=== PATIENT | female | born 1990 | race Caucasian/White ===

== ENCOUNTER 2016-11-13 14:50 | Emergency (ER) | payer SELFPAY ==
[~2016-11-13] VITALS: Ht 172.7 cm; Wt 90.9 kg
[2016-11-13 14:53] VITALS: BP 167/86; PULSE 78; RESP 12; TEMP 97.4; O2SAT 98
[2016-11-13] MEDS ORDERED: AMOX500C PO (15:46)
[2016-11-13] MEDS ORDERED: AZIT250T3 PO (15:46)
--- NOTE | 2016-11-13 16:01 | PD ---
HPI . abdominal discomfort, diarrhea, nausea x 5 days Chief Complaint: Abdominal Pain Time Seen by Provider: 15:49 Travel History International Travel<30 days: No Contact w/Intl Traveler<30days: No Traveled to known affect area: No History of Present Illness HPI 26-year-old female with HTN here with complaints of abdominal discomfort, nausea and vomiting for several days. Patient states she was coughing and sick on Thursday, where she visited [facility] and was told that she had a respiratory infection. Patient was given antibiotics (augmentin) and went home and developed diarrhea. She then went back to another hospital in [place] and was changed to amoxicillin and Z-Valente. Then patient has been having some intense abdominal discomfort, which she describes as a burning sensation. She cannot localize the pain as it is diffuse throughout her abdomen. She is still having some diarrhea, but states her nausea significantly improved. During subsequent hospital visit she had a chest x-ray with questionable pneumonia and had a CT scan that was negative. Patient states she is here because she feels that she was not given good answers as to why she is having abdominal discomfort. She denies any fever, chills, sob, nausea, or vomiting. Her bp is elevated and she states it has been high since she has been sick. She is aware she has HTN and states she uses diet to control. PFSH Past Medical History Hypertension: Yes Tetanus Vaccination: < 5 Years Influenza Vaccination: No ?: Not LMP: 10/14/2016 : 0 Para: 0 Miscarriage: 0 : 0 Past Surgical History Surgical History: No Previous Surgery Social History Alcohol Use: No Tobacco Use: No Substance Use: No (MARIJUANA ) Allergies-Medications (Allergen,Severity, Reaction): Coded Allergies: No Known Allergies (Unverified , 11/13/16) Reported Meds & Prescriptions Reported Meds & Active Scripts Active Phenergan (Promethazine HCl) 25 Mg Tab 25 Mg PO Q8HR PRN Reported Azithromycin 250 Mg Tab 250 Mg PO DIRECTED Take 2 tabs (500 mg) on day 1 then 1 tab daily x 4 days. Amoxicillin 500 Mg Cap 500 Mg PO BID Review of Systems General / Constitutional: No: Fever Eyes: No: Visual changes HENT: No: Headaches Cardiovascular: No: Chest Pain or Discomfort Respiratory: No: Shortness of Breath Gastrointestinal: Positive: Abdominal Pain Genitourinary: No: Dysuria Musculoskeletal: No: Pain Skin: No Rash Neurologic: No: Weakness Psychiatric: No: Depression Endocrine: No: Polydipsia Hematologic/Lymphatic: No: Easy Bruising Physical Exam Narrative GENERAL: AAO x 3, no acute distress, Well-nourished, well-developed patient. Obese. SKIN: Warm and dry. No visible rashes or bruising. HEAD: Normocephalic and atraumatic. EYES: No scleral icterus. No injection or drainage. ENT: No nasal drainage noted. Mucous membranes pink. Airway patent. NECK: Supple, trachea midline. No JVD. CARDIOVASCULAR: Regular rate and rhythm without murmurs, gallops, or rubs. RESPIRATORY: Breath sounds equal bilaterally. No accessory muscle use. No rhonchi or rales. GASTROINTESTINAL: Abdomen soft, nondistended. Normoactive bowel sounds. No guarding or rebounder tenderness. No visible abn. EXTREMITIES: No cyanosis or edema. BACK: Nontender without obvious deformity. No CVA tenderness. PSYCH: AAO x 3, normal affect. Data Data Last Documented VS Vital Signs Date Time Temp Pulse Resp B/P Pulse Ox O2 Delivery O2 Flow Rate FiO2 11/13/16 15:45 16 11/13/16 14:53 97.4 78 167/86 98 Room Air MDM Medical Decision Making Medical Screen Exam Complete: Yes Emergency Medical Condition: Yes Medical Record Reviewed: Yes (none on file) Differential Diagnosis gastroenteritis vs. adverse reaction to medication vs. IBS Narrative Course 26-year-old female with HTN here with complaints of abdominal discomfort, nausea and vomiting for several days. Patient states she was coughing and sick on Thursday, where she visited [facility] and was told that she had a respiratory infection. Patient was given antibiotics (augmentin) and went home and developed diarrhea. She then went back to another hospital in [place] and was changed to amoxicillin and Z-Valente. Then patient has been having some intense abdominal discomfort, which she describes as a burning sensation. She cannot localize the pain as it is diffuse throughout her abdomen. She is still having some diarrhea, but states her nausea significantly improved. During one of her hospital visit she had a chest x-ray with questionable pneumonia and had a CT scan that was negative. Patient states she is here because she feels that she was not given good answers as to why she is having abdominal discomfort. She denies any fever, chills, sob, nausea, or vomiting. Her bp is elevated and she states it has been high since she has been sick. She is aware she has HTN and states she uses diet to control. Discussed with patient that her physical exam findings are minimal and that since she had CT scan done already, that I do not recommend another scan. She is not in acute signs of distress. She does not appear to have an acute abdomen and further workup is not indicated. Advised to complete medications to treat respiratory infection and if symptoms worsen to proceed to nearest er. It is likely her diarrhea and upset stomach are from one of her antibiotics or viral gastroenteritis. She was advised to gradually advance her diet. Patient verbalized understanding of instructions, questions were answered, and thanked me for their care. I advised them if their condition worsens, please return to the nearest emergency room for further care. Diagnosis Primary Impression: Antibiotic drug intolerance Additional Impressions: Gastroenteritis Viral intestinal infection Patient Instructions: Abdominal Pain (ED), Gastroenteritis (ED), General Instructions Departure Forms: Tests/Procedures, Work Release Enter return to work date: Nov 14, 2016 Additional Instructions: Please follow up with your primary care provider. You will need your blood pressure monitored. If your symptoms worsen, please proceed to the nearest emergency room. You can take over the counter Imodium as we discussed. Try to advance your diet slowly. Try bananas, rice, apples, toast, etc. Med/Other Pt SpecificInfo: Prescription(s) given Scripts Promethazine (Phenergan)25 Mg Tab25 Mg PO Q8HR PRN (Nausea/Vomiting) #30 TAB Ref 0 Prov:Maggie Sandhu 11/13/16 Disposition: 01 DISCHARGE HOME Condition: Stable Maggie Sandhu Nov 13, 2016 16:01
[2016-11-13] MEDS ORDERED: PROM25TA5 PO (16:06)
== END 2016-11-13 16:38 | disposition home or self-care (01) ==
LOC: NEPB 14:50
DX: K52.1 Toxic gastroenteritis and colitis (principal); T36.0X5A Adverse effect of penicillins, initial encounter; I10 Essential (primary) hypertension
CPT/HCPCS: 99283